=== PATIENT | female | born 1980 | race African-American/Black ===

== ENCOUNTER 2019-02-27 09:14 | Inpatient (IN) | payer BC, OTHER ==
[~2019-02-27] VITALS: Ht 162.6 cm; Wt 88.5 kg
[~2019-02-27 09:14] MED LIST: ONDANSETRON ODT8 MG PO; PRILOSEC OTC20 MG PO
[2019-02-27 09:30] VITALS: BP 125/81
[2019-02-27 10:13] LABS: ABSOLUTE NEUTROPHILS 8.9 thou/uL (1.4-8.2); BASOPHILS 1.1 % (0.0-2.0); EOSINOPHILS 1.6 % (0.0-3.0); HEMATOCRIT 45.7 % (37.0-47.0); HEMOGLOBIN 15.4 gm/dL (12.0-15.0); LYMPHOCYTES 30.6 % (24.0-44.0); MCH 31.7 pg (26.0-34.0); MCHC 33.6 g/dL (28.0-37.0); MCV 94.2 fL (80.0-100.0); MONOCYTES 6.1 % (1.0-8.0); PLATELET COUNT 380 thou/uL (150-400); POLYS 60.6 % (36.0-66.0); RBC 4.85 mil/uL (4.20-5.00); RDW 13.3 % (10.5-14.5); WBC 14.7 thou/uL (4.0-11.0)
[2019-02-27 10:24] LABS: ANION GAP 14 mmol/L (7-16); BUN 10 mg/dL (7-18); CALCIUM 9.3 mg/dL (8.5-10.1); CHLORIDE 106 mmol/L (98-107); CO2 19 mmol/L (21-32); CREATININE 0.9 mg/dL (0.6-1.0); GLUCOSE 142 mg/dL (74-106); POTASSIUM 3.6 mmol/L (3.5-5.1); SODIUM 139 mmol/L (136-145)
[2019-02-27 10:32] LABS: ALBUMIN 1.2 g/dL (3.4-5.0); LIPASE 123 U/L (73-393); SGOT 52 U/L (15-37); SGPT 69 U/L (30-65); TOTAL BILIRUBIN 0.2 mg/dL (<0.1-1.0); TOTAL PROTEIN 5.8 g/dL (6.4-8.2); TROPONIN-I <0.06 ng/mL (<0.06)
[2019-02-27 14:40] VITALS: BP 100/48
[2019-02-27 14:52] VITALS: BP 117/74
--- NOTE | 2019-02-27 19:51 | NUR ---
PT ARRIVED TO UNIT FROM ED AT 1530 IN STABLE CONDITION.ADMISSION HX,ASSESSMENT AND CAREPLAN COMPLETED.DR PAN NOTIFIED ABOUT CONSULT AND SHE ROUNDED ON PT.ORDER NOTED.PT KEPT NPO PER DR ELI.REPORT OFF TO GREGORY LEAHY RN.
[2019-02-27 20:10] VITALS: BP 114/50
[2019-02-28 03:41] VITALS: BP 111/50
--- NOTE | 2019-02-28 05:02 | NUR ---
PT IS A/O X4.PT DENIES PAINS AND NO VOMITING AND DIARRHEA DURING SHIFT.PT IS UP AD GLORIA .PT IS NPO TILL SHE IS SEEN BY DOCTOR,BUT CAN TAKE MEDICATIONS WITH SIPS.CONTINUE TO MONITOR
[2019-02-28 05:53] LABS: HEMATOCRIT 39.2 % (37.0-47.0); MCH 31.5 pg (26.0-34.0); MCHC 33.1 g/dL (28.0-37.0); MCV 95.2 fL (80.0-100.0); RBC 4.12 mil/uL (4.20-5.00); RDW 13.4 % (10.5-14.5); WBC 7.8 thou/uL (4.0-11.0)
[2019-02-28 06:03] LABS: ALBUMIN 0.8 g/dL (3.4-5.0); CALCIUM 7.7 mg/dL (8.5-10.1); CREATININE 0.8 mg/dL (0.6-1.0); MAGNESIUM 1.7 mg/dL (1.8-2.4); POTASSIUM 3.5 mmol/L (3.5-5.1)
[2019-02-28 07:27] VITALS: BP 118/76
--- NOTE | 2019-02-28 08:35 | EKG ---
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: jngum : 1980 Requested By: Clemente Tracey Order Number: [id number] MD: Paulino Whatley Measurements Intervals Holt Rate: 57 P: 36 NJ: 139 QRS: 14 QRSD: 91 T: 10 QT: 459 QTc: 447 Interpretive Statements Sinus bradycardia Anteroseptal infarct, age indeterminate Compared to ECG 10/31/2018 01:53:17 septal Q waves are now present Electronically Signed On 02-28-2019 8:35:19 CDT by Paulino Whatley [email or web address] <ELECTRONICALLY SIGNED> By: Paulino Whatley MD, [facility] 02/28/19 0835 [id number] Paulino Whatley MD, [facility] /EPI
[2019-02-28] MEDS ORDERED: CEFDINIR300 MG PO (10:37)
[2019-02-28] MEDS ORDERED: FLAGYL500 M1 PO (10:37)
[2019-02-28 12:30] LABS: ALBUMIN 0.9 g/dL (3.4-5.0); DIRECT BILIRUBIN < 0.1 mg/dL (<0.1-0.3); SGOT 38 U/L (15-37); SGPT 47 U/L (30-65); TOTAL BILIRUBIN 0.2 mg/dL (<0.1-1.0); TOTAL PROTEIN 4.6 g/dL (6.4-8.2)
--- NOTE | 2019-02-28 13:38 | NUR ---
PT ADMITTED RELATED TO ABDOMINAL PAIN. CM REVIEWED CHART AND SPOKE WITH CARE TEAM. CM MET WITH PT AT BEDSIDE THIS DAY. PT IS A&O X4. CM ROLE INTRODUCED. PT INDICATED SHE LIVES IN A HOUSE WITH HER KIDS WITH 4 STEPS TO ENTER AND 4 STEPS INSIDE. 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 PT INDICATED NO DME OR HH HX. PT INDICATED SHE PLANS TO RETURN HOME [facility] MEDICALLY STABLE. CM TO FOLLOW INDICATED WITH DC PLANNING.
--- NOTE | 2019-02-28 17:29 | NUR ---
ASSUMED PT CARE AT 7AM.PT INAND OUT OFBED TO BR INDEPENDENTLY.ASSESSMENT COMPLETED.VSS.PT REPORTED FEELING BETTER AND WANTED TO EAT AND DRINK.DR ELI AND VIVIANE HERE,ORDER NOTED.CLEAR LIQ TRAY GIVEN AT BREAKFAST AND WELL TOLERATED AND LATER ADVANCE TO FULL AT LUNCH.PIV CHANGED BY THIS RN DUE TO LEAKING.PT WILL POSSIBLY DC LATER THIS EVENING IF ABLE TO TOLERATE DINNER. WILL CONTINUE TO MONITOR.
--- NOTE | 2019-02-28 19:48 | NUR ---
PT REPORTED FEELING BETTER THIS EVENING AFTER DINNER AND WANTED TO DC HOME. DR EIL CALLED BUT RECEIVED RETURN CALL FROM DR KNIGHT.DC ORDER NOTED. PT INFORMED.REPORT OFF TO JUANA LEAHY RN.SHE WILL DC PT HOME.
[2019-02-28 20:03] VITALS: BP 118/76
--- NOTE | 2019-02-28 21:16 | NUR ---
discharge pt discharged to home to f/u with pcp as directed iv dc'd site without redness edema or any other s/s of complication. printed discharge instructions prescriptions and prescription educational material provided and reviewed prescriptions faxed to [facility] in [place] and hard copy provided to patient pt r/v understanding of discharge orders and medication regimen escorted to door with staff.
== END 2019-02-28 21:20 | disposition home or self-care (01) | DRG 392 ==
LOC: ER 09:14 → EROBS 12:22 → 4W 15:22
PROVIDERS: Emergency Medicine; Nurse Practitioner; ADMIT Surgery
DX: A09 Infectious gastroenteritis and colitis, unspecified (principal); E46 Unspecified protein-calorie malnutrition; R74.0 Nonspecific elevation of levels of transaminase and lactic acid dehydrogenase [LDH]; F17.210 Nicotine dependence, cigarettes, uncomplicated; Z68.33 Body mass index [BMI] 33.0-33.9, adult
CPT/HCPCS: 10040